=== PATIENT | female | born 1955 | race Caucasian/White ===

== ENCOUNTER → 2019-04-21 10:29 | Outpatient (CLI) | payer BC, SELFPAY ==
--- NOTE | 2019-04-21 | DI.MG.S_ITS ---
BILATERAL DIGITAL SCREENING MAMMOGRAM 3D/2D WITH CAD: 04/21/2019 CLINICAL: Routine screening. Family history of breast cancer. Comparison is made to exams dated: 10/12/2017 mammogram, 11/21/2016 mammogram, 06/03/2015 mammogram, and 08/15/2014 mammogram - [facility]. The tissue of both breasts is heterogeneously dense. This may lower the sensitivity of mammography. Current study was also evaluated with a Computer Aided Detection (CAD) system. There is a 1.3 cm round asymmetry with an indistinct and microlobulated margin in the left breast anterior depth central to the nipple seen on the mediolateral oblique view only. No other significant masses, calcifications, or other findings are seen in either breast. IMPRESSION: INCOMPLETE: NEEDS ADDITIONAL IMAGING EVALUATION The 1.3 cm round asymmetry in the left breast is indeterminate. Additional views with possible ultrasound are recommended. This exam was interpreted at Station ID: [id number]. NOTE: For mammograms, a report in lay terms will be sent to the patient. Approximately 15% of breast malignancies will not be visualized mammographically. In the management of a palpable breast mass, a negative mammogram must not discourage biopsy of a clinically suspicious lesion. Electronically Signed By: Brooke dang/:04/21/2019 17:26:52 letter sent: Additional Imaging Needed ACR BI-RADS Category 0: Incomplete 3340F
== END ==
PROVIDERS: PCP Family Medicine; Visit Provider Family Medicine
DX: Z12.31 Encounter for screening mammogram for malignant neoplasm of breast (principal); Z80.3 Family history of malignant neoplasm of breast; R92.8 Other abnormal and inconclusive findings on diagnostic imaging of breast
CPT/HCPCS: 77063; 77067

== ENCOUNTER → 2019-05-08 14:10 | Outpatient (CLI) | payer BC, SELFPAY ==
--- NOTE | 2019-05-08 | DI.MG.S_ITS ---
UNILATERAL LEFT DIGITAL DIAGNOSTIC MAMMOGRAM 3D/2D WITH ADDITIONAL VIEWS: 05/08/2019 CLINICAL: Additional evaluation requested from prior study. Comparison is made to exams dated: 04/21/2019 mammogram - [facility], 10/12/2017 mammogram, and 11/21/2016 mammogram - [facility]. The tissue of left breast is heterogeneously dense. This may lower the sensitivity of mammography. Previously noted 1.3 cm round asymmetry with an indistinct margin in the left breast anterior depth central to the nipple seen on the mediolateral oblique view only on comparison screening mammogram of 04/21/19 localizes to the superior left breast and has the appearance of benign anatomic tissues on additional views. IMPRESSION: INCOMPLETE: NEEDS ADDITIONAL IMAGING EVALUATION Previously noted 1.3 cm round asymmetry with an indistinct margin in the left breast anterior depth central to the nipple seen on the mediolateral oblique view only on comparison screening mammogram of 04/21/19 localizes to the superior left breast and has the appearance of benign anatomic tissues on additional views. A targeted ultrasound is recommended and will be performed immediately following this exam. This exam was interpreted at Station ID: [id number]. NOTE: For mammograms, a report in lay terms will be sent to the patient. Approximately 15% of breast malignancies will not be visualized mammographically. In the management of a palpable breast mass, a negative mammogram must not discourage biopsy of a clinically suspicious lesion. Electronically Signed By: Jesus Carney M.D. ecl/:05/08/2019 14:38:43 ACR BI-RADS Category 0: Incomplete 3340F
--- NOTE | 2019-05-08 | DI.US.S_ITS ---
LIMITED ULTRASOUND OF LEFT BREAST: 05/08/2019 CLINICAL: Patient returns today to evaluate an asymmetry in the left breast. Comparison is made to exams dated: 05/08/2019 mammogram, 04/21/2019 mammogram - [facility], and 10/12/2017 mammogram - [facility]. Color flow and real-time ultrasound of the left breast 10-2 o'clock region were performed. Lucas scale images of the real-time examination were reviewed. No underlying breast mass or abnormality is identified. There is no ultrasound correlate for the previously noted 1.3 cm round asymmetry with an indistinct margin in the left breast anterior depth central to the nipple seen on the mediolateral oblique view only on comparison screening mammogram of 04/21/19, which localizes to the superior left breast and had the appearance of benign anatomic tissues on additional views performed today 05/08/19. IMPRESSION: NEGATIVE There is no sonographic evidence of malignancy in the imaged areas of the left breast. Return to annual screening mammography schedule is recommended. The patient is advised to monitor her breasts and to return sooner for re-evaluation should she feel anything grow or change. This exam was interpreted at Station ID: [id number]. Electronically Signed By: Jesus Carney M.D. ecl/:05/08/2019 15:00:44 letter sent: Normal Exam Ultrasound BI-RADS: 1 Negative
== END ==
PROVIDERS: PCP Family Medicine; Visit Provider Family Medicine
DX: R92.8 Other abnormal and inconclusive findings on diagnostic imaging of breast (principal); N64.89 Other specified disorders of breast
CPT/HCPCS: 76642; 77065; G0279

== ENCOUNTER → 2020-06-16 10:54 | Outpatient (CLI) | payer BC, SELFPAY ==
--- NOTE | 2020-06-16 | DI.RAD.S_ITS ---
PROCEDURE: XR LUMBAR SPINE 2-3V INDICATIONS: Low back pain TECHNIQUE: 3 views of the lumbar spine were acquired. COMPARISON: None. FINDINGS: Bones: 5 ezp-wla-[id number] vertebrae are present. There is normal bony alignment. No vertebral body compression fractures. No suspicious bony lesions. The degenerative disc disease present is mild at L1-2, moderate at L2 through L3 4 and mild from L4 inferiorly. Facet osteoarthritis becomes progressively more prominent from L3 inferiorly. Spinal and foraminal stenosis may be present at L4-5 and L5-S1 based on these findings. Soft tissues: Overlying bowel gas pattern is normal. No suspicious soft tissue calcifications. IMPRESSION: Klyh-wj-ttnrrxgk degenerative disc disease, as discussed. No acute disease or appreciable subluxation is found. Spinal and foraminal stenosis would be suspected at L4-5 and L5-S1. Dictated by: Grzegorz Carlson M.D. on 06/16/2020 at 13:03 Approved by: Grzegorz Carlson M.D. on 06/16/2020 at 13:05
--- NOTE | 2020-06-16 11:09 | DI.MG.S_ITS ---
Patient Name: NAVDEEP CATHERINE date: 1955 Sex: F Attending Physician: Walter Indications: Date: 06/16/2020 11:04 At the request of: ROSALINO DUMONT Procedure: MM screening mammo BI BILATERAL DIGITAL SCREENING MAMMOGRAM 3D/2D WITH CAD: 06/16/2020 CLINICAL: Routine screening. Family history of breast cancer. Comparison is made to exams dated: 05/08/2019 mammogram, 04/21/2019 mammogram - [facility], and 10/12/2017 mammogram - [facility]. The tissue of both breasts is heterogeneously dense. This may lower the sensitivity of mammography. Current study was also evaluated with a Computer Aided Detection (CAD) system. No significant masses, calcifications, or other findings are seen in either breast. There has been no significant interval change. IMPRESSION: NEGATIVE There is no mammographic evidence of malignancy. A 1 year screening mammogram is recommended. This exam was interpreted at Station ID: [id number]. NOTE: For mammograms, a report in lay terms will be sent to the patient. Approximately 15% of breast malignancies will not be visualized mammographically. In the management of a palpable breast mass, a negative mammogram must not discourage biopsy of a clinically suspicious lesion. Electronically Signed By: Gerard Sandra M.D., jr/joycelyn:06/16/2020 16:39:53 letter sent: Normal Exam ACR BI-RADS Category 1: Negative 3341F
== END ==
PROVIDERS: PCP Family Medicine; Referring Provider Family Medicine; Visit Provider Family Medicine
DX: Z12.31 Encounter for screening mammogram for malignant neoplasm of breast (principal); Z80.3 Family history of malignant neoplasm of breast; M54.5 Low back pain; M51.36 Other intervertebral disc degeneration, lumbar region; M47.816 Spondylosis without myelopathy or radiculopathy, lumbar region
CPT/HCPCS: 72100; 77063; 77067

== ENCOUNTER → 2021-06-21 11:32 | Outpatient (CLI) | payer BC, SELFPAY ==
--- NOTE | 2021-06-21 11:38 | DI.MRI.S_ITS ---
PROCEDURE: MR KNEE RT WO CON INDICATIONS: right knee pain TECHNIQUE: Noncontrast sagittal PD fast spin echo and T2 fast spin echo with fat saturation, sagittal 3-D FLASH with fat saturation; coronal T1 spin echo and PD fast spin echo with fat saturation, and axial PD fast spin echo with fat saturation through the knee. COMPARISON: None. FINDINGS: Image quality: Excellent. Menisci: Complex oblique tear involving body/posterior horn junction of medial malleolus extending to inferior articulating surface. There is no evidence of focal lateral meniscal tear. The meniscal root ligaments appear intact. Cruciate ligaments: Anterior cruciate ligament appears thickened suggestive of low-grade sprain/degenerative changes. No full-thickness ACL rupture. PCL is intact. Medial structures: Low-grade MCL sprain near its femoral insertion is seen. The posterior oblique ligament, semimembranosus tendon insertions, oblique popliteal ligament, and meniscocapsular junction appear intact. Visualized portions of the pes anserinus tendons appear normal. No abnormal bursal fluid. Lateral structures: The lateral collateral ligament, long and short heads of the biceps femoris tendon appear intact. The popliteus tendon appears normal; the popliteofibular ligament appears intact. The posterosuperior and anteroinferior popliteomeniscal fascicles appear intact. The arcuate and fabellofibular ligaments appear intact, on either side of the lateral inferior geniculate artery. Iliotibial band appears normal. Anterior structures: The quadriceps and patellar tendons appear intact. Patellar alignment is normal. No femoral trochlear dysplasia or ventral trochlear prominence. No edema in the infrapatellar fat pad. Bones and cartilage: There is mild tricompartmental osteoarthritis and chondromalacia. Small area of edema in posterior weight-bearing portion of lateral femoral condyle is seen suggestive of small osteochondral injuries measures up to 5 millimeters in size. Focal moderate to high-grade chondromalacia involving medial facet of patella cartilage is seen. Joint space: There is small amount of joint fluid. No Barry's cyst. Normal appearing synovial plicae are incidentally noted. IMPRESSION: 1. Mild tricompartmental osteoarthritis and low-grade chondromalacia with suggestion of subcentimeter osteochondral lesions in posterior weight-bearing portion of lateral femoral condyle as above. Focal moderate to high-grade chondromalacia involving medial facet of patella cartilage. 2. Suggestion of complex tear involving body/posterior horn junction of medial meniscus extending to inferior articulating surface. No evidence of focal lateral meniscal tear. 3. Degenerative changes versus low-grade ACL sprain. No ACL rupture. PCL is intact. 4. Low-grade proximal MCL sprain. Dictated by: Andrew Edwards M.D. on 06/21/2021 at 14:08 Approved by: Andrew Edwards M.D. on 06/21/2021 at 14:20
--- NOTE | 2021-06-21 11:38 | DI.MRI.S_ITS ---
PROCEDURE: MR LUMBAR SPINE WO CON INDICATIONS: lumbar radiulopathy TECHNIQUE: Noncontrast sagittal T1 spin echo and T2 fast echo, sagittal STIR, axial T1 and T2 fast spin echo through the lumbar spine. In cases with scoliosis, additional coronal T2 fast spin echo may be performed. COMPARISON: None. FINDINGS: Image quality: Excellent. Alignment and Curvature: There is normal bony alignment. Bone Marrow: Degenerative endplate changes noted at L2-3 and L3-4. There is less than 10 percent wedge-shaped anterior height loss at L1 without marrow edema. Small Schmorl's nodes involving L1-2 and L3-4 endplates noted. Spinal Cord: Conus medullaris terminates at the L1 level. Visualized cord demonstrates normal signal and size. Paraspinous Soft Tissues: Incidental note is made of rounded filling defect in the lumen of the gallbladder consistent with cholelithiasis. Small 1 cm right renal simple cysts noted. T12-L1: Small paracentral left 1-2 mm disc protrusion noted without central or foraminal stenosis. L1-L2: Disc height is preserved. There is a small circumferential disc bulge present resulting in mild central and no foraminal stenosis. L2-L3: Moderate disc height loss with circumferential disc bulge results in mild central stenosis. Is moderate bilateral foraminal stenosis present as well. L3-L4: Moderate disc space narrowing with circumferential disc bulge anterior osteophyte noted. Mild hypertrophic facet joints present. There is moderate to severe central stenosis as well as severe bilateral foraminal stenosis, right greater than left. L4-L5: Mild disc height loss and circumferential disc bulge present with ligamentum flavum hypertrophy resulting in moderate central and moderate bilateral foraminal stenosis. L5-S1: Disc height is preserved. Mild circumferential disc bulge and hypertrophic facet joints present without central or foraminal stenosis. IMPRESSION: Multilevel degenerative disc disease and arthropathy resulting in varying degrees of central and foraminal stenosis including moderate to severe central and severe bilateral foraminal stenosis at L3-4 Incidental cholelithiasis and small right renal cyst Approved by: Bebeto Busby M.D. on 06/21/2021 at 14:27
== END ==
PROVIDERS: PCP Physician Assistant; Referring Provider Physician Assistant; Visit Provider Physician Assistant
DX: M54.16 Radiculopathy, lumbar region (principal); M25.561 Pain in right knee; M51.36 Other intervertebral disc degeneration, lumbar region; M48.061 Spinal stenosis, lumbar region without neurogenic claudication; M47.816 Spondylosis without myelopathy or radiculopathy, lumbar region; M17.11 Unilateral primary osteoarthritis, right knee; M94.261 Chondromalacia, right knee; S83.8X1A Sprain of other specified parts of right knee, initial encounter
CPT/HCPCS: 72148; 73721

== ENCOUNTER → 2021-06-29 09:25 | Outpatient (CLI) | payer BC, MEDICARE, SELFPAY ==
[2021-06-29 19:15] LABS: Add Manual Diff / Slide Review NO; Basophils Absolute Auto 0 /uL (0-100); Basophils Percent Auto 0.2 % (0-2); Eosinophils Absolute Auto 300 /uL (0-450); Eosinophils Percent Auto 5.7 % (2-4); Hematocrit 44.8 % (36-46); Hemoglobin 14.7 g/dL (12.0-16.0); Lymphocytes Absolute Auto 1600 /uL (1100-4500); Lymphocytes Percent Auto 27.3 % (25-40); Mean Corpuscular HGB Conc 32.7 % (30-36); Mean Corpuscular Hemoglobin 29.3 PG (26-34); Mean Corpuscular Volume 89.5 fL (80-100); Monocytes Absolute Auto 400 /uL (0-900); Monocytes Percent Auto 7.1 % (3-14); Neutrophils Absolute Auto 3400 /uL (1500-7000); Neutrophils Percent Auto 59.7 % (50-75); Platelet Count 193 X10^3/uL (150-400); Red Blood Cell Count 5.01 X10^6/uL (4.0-5.2); Red Cell Distribution Width 12.9 % (11.6-14.8); White Blood Cell Count 5.7 X10^3/uL (4.5-11.0)
[2021-06-29 19:22] LABS: Alanine Aminotransferase 16 IU/L (<35); Albumin 4.2 g/dL (3.5-5.0); Albumin Globulin Ratio 1.6 (1.0-2.8); Alkaline Phosphatase 85 U/L (38-126); Aspartate Aminotransferase 31 IU/L (14-36); BUN Creatinine Ratio 22.1 (6-22); Bilirubin Total 0.6 mg/dL (0.2-1.3); Blood Urea Nitrogen 15 mg/dL (7-17); Calcium 9.7 mg/dL (8.4-10.2); Carbon Dioxide 35 mmol/L (22-32); Chloride 101 mmol/L (98-107); Cholesterol 205 mg/dL (140-199); Estimated Glomerular Filt Rate > 60.0 mL/min (>60); Globulin 2.7 g/dL (1.7-4.1); Glucose 84 mg/dL (80-110); HDL Cholesterol 84 mg/dL (40-60); HEMOLYSIS < 15 (0-50); LDL Cholesterol Calculated 103 mg/dL (<100); Potassium 4.5 mmol/L (3.4-5.1); Sodium 139 mmol/L (137-145); Total Protein 6.9 g/dL (6.3-8.2); Triglycerides 92 mg/dL (35-150)
== END ==
PROVIDERS: PCP Physician Assistant; Visit Provider Physician Assistant
DX: Z79.899 Other long term (current) drug therapy (principal); R45.89 Other symptoms and signs involving emotional state
CPT/HCPCS: 80053; 80061; 84443; 85025

== ENCOUNTER → 2021-07-07 12:00 | Outpatient (CLI) | payer BC, MEDICARE, SELFPAY ==
--- NOTE | 2021-07-07 12:02 | DI.MG.S_ITS ---
BILATERAL DIGITAL SCREENING MAMMOGRAM 3D/2D WITH CAD: 07/07/2021 CLINICAL: Routine screening. Family history of breast cancer. Comparison is made to exams dated: 06/16/2020 mammogram, 05/08/2019 mammogram, and 04/21/2019 mammogram - [facility]. The tissue of both breasts is heterogeneously dense. This may lower the sensitivity of mammography. Current study was also evaluated with a Computer Aided Detection (CAD) system. There is a biopsy clip in the right breast. No significant masses, calcifications, or other findings are seen in either breast. There has been no significant interval change. IMPRESSION: NEGATIVE There is no mammographic evidence of malignancy. A 1 year screening mammogram is recommended. This exam was interpreted at Station ID: [id number]. NOTE: For mammograms, a report in lay terms will be sent to the patient. Approximately 15% of breast malignancies will not be visualized mammographically. In the management of a palpable breast mass, a negative mammogram must not discourage biopsy of a clinically suspicious lesion. Electronically Signed By: Ramu zamora/joycelyn:07/07/2021 14:46:01 letter sent: Normal Exam ACR BI-RADS Category 1: Negative 3341F
--- NOTE | 2021-07-07 12:02 | DI.RAD.S_ITS ---
PROCEDURE: XR DEXA AXIAL SKELETON INDICATIONS: screening osteoporosis COMPARISON: None. FINDINGS: This blank DEXA report has been sent in error by the PACS system. The correct and complete report will be forthcoming in 1-2 days. Thank you for your patience and understanding. Dictated by: Tyesha Ryder MD, PhD on 07/07/2021 at 17:16 Approved by: Tyesha Ryder MD, PhD on 07/07/2021 at 17:16
== END ==
PROVIDERS: PCP Physician Assistant; Referring Provider Physician Assistant; Visit Provider Physician Assistant
DX: Z13.820 Encounter for screening for osteoporosis (principal); Z79.899 Other long term (current) drug therapy; Z12.31 Encounter for screening mammogram for malignant neoplasm of breast; Z80.3 Family history of malignant neoplasm of breast; M85.88 Other specified disorders of bone density and structure, other site; M85.852 Other specified disorders of bone density and structure, left thigh; M85.851 Other specified disorders of bone density and structure, right thigh
CPT/HCPCS: 77063; 77067; 77080

== ENCOUNTER → 2022-07-27 11:13 | Outpatient (CLI) | payer BC, SELFPAY ==
--- NOTE | 2022-07-27 11:14 | DI.MG.S_ITS ---
BILATERAL DIGITAL SCREENING MAMMOGRAM 3D/2D WITH CAD: 07/27/2022 CLINICAL: Routine screening. Family history of breast cancer. Comparison is made to exams dated: 07/07/2021 mammogram, 06/16/2020 mammogram, and 04/21/2019 mammogram - [facility]. Both breasts are heterogeneously dense, which may obscure small masses (category c / 51-75% glandular tissue). Current study was also evaluated with a Computer Aided Detection (CAD) system. There is a biopsy clip in the right breast. No significant masses, calcifications, or other findings are seen in either breast. There has been no significant interval change. IMPRESSION: NEGATIVE There is no mammographic evidence of malignancy. A 1 year screening mammogram is recommended. This exam was interpreted at Station ID: [id number]. NOTE: For mammograms, a report in lay terms will be sent to the patient. Approximately 15% of breast malignancies will not be visualized mammographically. In the management of a palpable breast mass, a negative mammogram must not discourage biopsy of a clinically suspicious lesion. Electronically Signed By: Ramu zamora/joycelyn:07/27/2022 16:19:46 letter sent: Normal Exam ACR BI-RADS Category 1: Negative 3341F
== END ==
PROVIDERS: PCP Family Medicine; Referring Provider Family Medicine; Visit Provider Family Medicine
DX: Z12.31 Encounter for screening mammogram for malignant neoplasm of breast (principal); Z80.3 Family history of malignant neoplasm of breast
CPT/HCPCS: 77063; 77067

== ENCOUNTER → 2022-08-03 09:35 | Outpatient (CLI) | payer BC, SELFPAY ==
[2022-08-03 19:25] LABS: Add Manual Diff / Slide Review NO; Basophils Absolute Auto 0 /uL (0-100); Basophils Percent Auto 0.4 % (0-2); Eosinophils Absolute Auto 400 /uL (0-450); Hematocrit 42.2 % (36-46); Hemoglobin 14.3 g/dL (12.0-16.0); Lymphocytes Absolute Auto 1700 /uL (1100-4500); Lymphocytes Percent Auto 30.6 % (25-40); Mean Corpuscular HGB Conc 33.9 % (30-36); Mean Corpuscular Hemoglobin 29.6 PG (26-34); Mean Corpuscular Volume 87.5 fL (80-100); Monocytes Absolute Auto 500 /uL (0-900); Neutrophils Absolute Auto 3000 /uL (1500-7000); Platelet Count 194 X10^3/uL (150-400); Red Blood Cell Count 4.82 X10^6/uL (4.0-5.2); Red Cell Distribution Width 12.6 % (11.6-14.8); White Blood Cell Count 5.7 X10^3/uL (4.5-11.0)
[2022-08-03 19:29] LABS: BUN Creatinine Ratio 22.9 (6-22); Blood Urea Nitrogen 16 mg/dL (7-17); Calcium 9.1 mg/dL (8.4-10.2); Carbon Dioxide 32 mmol/L (22-32); Chloride 97 mmol/L (98-107); Cholesterol 206 mg/dL (140-199); Estimated Glomerular Filt Rate > 60 mL/min (>60); Glucose 88 mg/dL (80-110); HDL Cholesterol 80 mg/dL (40-60); HEMOLYSIS < 15 (0-50); LDL Cholesterol Calculated 114 mg/dL (<100); Potassium 4.1 mmol/L (3.4-5.1); Sodium 136 mmol/L (137-145); Triglycerides 62 mg/dL (35-150)
[2022-08-03 20:22] LABS: Hep C Virus Ab w/Reflex Quant NEGATIVE s/c (NEGATIVE)
== END ==
PROVIDERS: PCP Family Medicine; Visit Provider Family Medicine
DX: Z00.00 Encounter for general adult medical examination without abnormal findings (principal); F32.9 Major depressive disorder, single episode, unspecified; Z11.59 Encounter for screening for other viral diseases; Z12.11 Encounter for screening for malignant neoplasm of colon; Z12.31 Encounter for screening mammogram for malignant neoplasm of breast; Z13.1 Encounter for screening for diabetes mellitus; Z13.6 Encounter for screening for cardiovascular disorders; Z13.820 Encounter for screening for osteoporosis; Z71.85 Encounter for immunization safety counseling
CPT/HCPCS: 80048; 80061; 85025; 86803

== ENCOUNTER → 2023-03-07 10:40 | Outpatient (CLI) | payer BC, SELFPAY ==
--- NOTE | 2023-03-07 | DI.MRI.S_ITS ---
PROCEDURE: MR KNEE LT WO CON INDICATIONS: Other tear of medial meniscus left knee TECHNIQUE: Noncontrast sagittal PD fast spin echo and T2 fast spin echo with fat saturation, sagittal 3-D FLASH with fat saturation; coronal T1 spin echo and PD fast spin echo with fat saturation, and axial PD fast spin echo with fat saturation through the knee. COMPARISON: None. FINDINGS: Image quality: Excellent. Menisci: Radial tearing of the posterior horn medial meniscus at the meniscal root ligament insertion site. Linear oblique and amorphous high T2 signal intensity traverses the inner, middle, and peripheral thirds of the anterior horn, body, and posterior horn medial meniscus, demonstrating inferior articular surface extension, indicating complex tearing. Lateral meniscus is intact. Cruciate ligaments: The anterior and posterior cruciate ligaments appear intact. Medial structures: The medial collateral ligament appears intact. Visualized portions of the pes anserinus tendons appear normal. Mild T2 signal elevation adjacent to the tibial insertion site of the semimembranosus. No abnormal bursal fluid. Lateral structures: The lateral collateral ligament, long and short heads of the biceps femoris tendon appear intact. The popliteus tendon appears normal. Iliotibial band appears normal. Anterior structures: The quadriceps and patellar tendons appear intact. Patellar alignment is normal. No femoral trochlear dysplasia or ventral trochlear prominence. No edema in the infrapatellar fat pad. Bones and cartilage: No bone marrow contusions or fractures. There is mild tricompartmental periarticular osteophyte formation. Severe articular cartilage loss diffusely overlies the weight-bearing aspects of the medial femoral condyle and medial tibial plateau. Mild articular cartilage loss overlies the weight-bearing aspects of the lateral femoral condyle and lateral tibial plateau. Mild articular cartilage loss overlies the medial and lateral patellar facets. Joint space: There is a small knee joint effusion and a small cyst. Normal appearing synovial plicae are incidentally noted. IMPRESSION: 1. Complex tearing of the medial meniscus. 2. Tricompartmental osteoarthritis with associated articular cartilage loss. 3. Insertional tendinitis of the semimembranosus. 4. Knee joint effusion and Barry's cyst. Dictated by: Sis Lara M.D. on 03/07/2023 at 11:30 Approved by: Sis Lara M.D. on 03/07/2023 at 11:34
== END ==
PROVIDERS: PCP Family Medicine; Referring Provider Orthopaedic Surgery; Visit Provider Orthopaedic Surgery
DX: S83.232A Complex tear of medial meniscus, current injury, left knee, initial encounter (principal); M17.12 Unilateral primary osteoarthritis, left knee; M76.822 Posterior tibial tendinitis, left leg; M25.462 Effusion, left knee; M71.22 Synovial cyst of popliteal space [Baker], left knee; X58.XXXA Exposure to other specified factors, initial encounter
CPT/HCPCS: 73721

== ENCOUNTER → 2023-08-14 10:43 | Outpatient (CLI) | payer BC, SELFPAY ==
--- NOTE | 2023-08-14 | DI.MG.S_ITS ---
BILATERAL DIGITAL SCREENING MAMMOGRAM 3D/2D WITH CAD: 08/14/2023 CLINICAL: Routine screening. Family history of breast cancer. Comparison is made to exams dated: 07/27/2022 mammogram, 07/07/2021 mammogram, and 06/16/2020 mammogram - [facility]. Both breasts are heterogeneously dense, which may obscure small masses (category c / 51-75% glandular tissue). Current study was also evaluated with a Computer Aided Detection (CAD) system. There is a biopsy clip in the right breast. No significant masses, calcifications, or other findings are seen in either breast. There has been no significant interval change. IMPRESSION: NEGATIVE There is no mammographic evidence of malignancy. A 1 year screening mammogram is recommended. Based on the Tyrer Cuzick model (a risk assessment model) the patient's lifetime risk is 17.6% and her 10 year risk is 10.1%. According to the ACR, ACS, and NCCN guidelines, an annual breast MRI exam along with mammogram is recommended if the patient's lifetime risk is 20% or greater. This exam was interpreted at Station ID: [id number]. NOTE: For mammograms, a report in lay terms will be sent to the patient. Approximately 15% of breast malignancies will not be visualized mammographically. In the management of a palpable breast mass, a negative mammogram must not discourage biopsy of a clinically suspicious lesion. Electronically Signed By: Kevin bustamante/joycelyn:08/14/2023 13:07:57 letter sent: Normal Exam ACR BI-RADS Category 1: Negative 3341F
== END ==
PROVIDERS: PCP Family Medicine; Referring Provider Family Medicine; Visit Provider Family Medicine
DX: Z12.31 Encounter for screening mammogram for malignant neoplasm of breast (principal); Z80.3 Family history of malignant neoplasm of breast
CPT/HCPCS: 77063; 77067

== ENCOUNTER → 2023-09-06 08:50 | Outpatient (CLI) | payer BC, SELFPAY ==
[2023-09-06 18:59] LABS: Add Manual Diff / Slide Review NO; Basophils Absolute Auto 0 /uL (0-100); Basophils Percent Auto 0.2 % (0-2); Eosinophils Absolute Auto 200 /uL (0-450); Hematocrit 43.9 % (36-46); Hemoglobin 14.7 g/dL (12.0-16.0); Lymphocytes Absolute Auto 1800 /uL (1100-4500); Lymphocytes Percent Auto 31.8 % (25-40); Mean Corpuscular HGB Conc 33.4 % (30-36); Mean Corpuscular Hemoglobin 29.3 PG (26-34); Mean Corpuscular Volume 87.9 fL (80-100); Monocytes Absolute Auto 500 /uL (0-900); Monocytes Percent Auto 8.6 % (3-14); Neutrophils Absolute Auto 3100 /uL (1500-7000); Neutrophils Percent Auto 55.4 % (50-75); Platelet Count 219 X10^3/uL (150-400); Red Cell Distribution Width 12.8 % (11.6-14.8); White Blood Cell Count 5.7 X10^3/uL (4.5-11.0)
[2023-09-06 19:17] LABS: Alanine Aminotransferase 16 IU/L (<35); Albumin Globulin Ratio 1.5 (1.0-2.8); Alkaline Phosphatase 87 U/L (38-126); Aspartate Aminotransferase 29 IU/L (14-36); BUN Creatinine Ratio 22.7 (6-22); Bilirubin Total 0.9 mg/dL (0.2-1.3); Blood Urea Nitrogen 17 mg/dL (7-17); Calcium 9.6 mg/dL (8.4-10.2); Carbon Dioxide 32 mmol/L (22-32); Chloride 96 mmol/L (98-107); Cholesterol 201 mg/dL (140-199); Estimated Glomerular Filt Rate > 60 mL/min (>60); Globulin 2.6 g/dL (1.7-4.1); Glucose 86 mg/dL (80-110); HDL Cholesterol 84 mg/dL (40-60); HEMOLYSIS < 15 (0-50); LDL Cholesterol Calculated 103 mg/dL (<100); Potassium 4.3 mmol/L (3.4-5.1); Sodium 135 mmol/L (137-145); Total Protein 6.6 g/dL (6.3-8.2); Triglycerides 69 mg/dL (35-150)
[2023-09-06 19:39] LABS: TSH w/ Reflex to FT4 3.35 uIU/mL (0.47-4.68)
[2023-09-06 19:57] LABS: Hep C Virus Ab w/Reflex Quant NEGATIVE s/c (NEGATIVE)
== END ==
PROVIDERS: PCP Family Medicine; Visit Provider Family Medicine
DX: Z13.1 Encounter for screening for diabetes mellitus (principal); F32.9 Major depressive disorder, single episode, unspecified; M17.0 Bilateral primary osteoarthritis of knee; M85.80 Other specified disorders of bone density and structure, unspecified site; J45.30 Mild persistent asthma, uncomplicated; Z13.6 Encounter for screening for cardiovascular disorders
CPT/HCPCS: 80053; 80061; 84443; 85025; 86803

== ENCOUNTER → 2023-10-12 10:25 | Outpatient (CLI) | payer BC, SELFPAY ==
--- NOTE | 2023-10-12 10:30 | DI.RAD.S_ITS ---
Bone Density Report Name: NAVDEEP CATHERINE Age: 68 Sex: Female Ethnicity: White Date of : 1955 Indication: osteopenia; Referring Provider: OSEAS DEE Study: Bone densitometry was performed. Exam Date: October 12, 2023 Accession number: [id number] Bone Density: Region BMD T-score Z-score Classification AP Spine(L2, L3, L4) 0.995 -0.8 1.3 Normal Femoral Neck (Left) 0.596 -2.3 -0.5 Osteopenia Total Hip (Left) 0.695 -2.0 -0.6 Osteopenia Femoral Neck (Right) 0.602 -2.2 -0.5 Osteopenia Total Hip (Right) 0.678 -2.2 -0.7 Osteopenia Total Hip Mean 0.687 -2.1 -0.7 Osteopenia World Health Organization criteria for BMD impression classify patients as: Normal (T-score at or above -1.0), Osteopenia (T-score between -1.0 and -2.5), or Osteoporosis (T-score at or below -2.5). 10-year Fracture Risk(1): Major Osteoporotic Fracture 11% Hip Fracture 2.5% Reported Risk Factors: [place] (), Neck BMD=0.596, BMI=20.3 (1) FRAX(R) Version 3.08. Fracture probability calculated for an untreated patient. Fracture probability may be lower if the patient has received treatment. Previous Exams: -- Region Exam Age BMD T-score BMD Change BMD Change Date g/cm2 vs Baseline vs Previous -- AP Spine (L2-L4) 10/12/2023 68 0.995 -0.8 0.014 (1.5%)# 0.014 (1.5%)# 07/07/2021 65 0.980 -0.9 Total Hip(Left) 10/12/2023 68 0.695 -2.0 -0.054 (-7.2%)# -0.054 (-7.2%)# 07/07/2021 65 0.749 -1.6 Total Hip(Right) 10/12/2023 68 0.678 -2.2 -0.008 (-1.2%)# -0.008 (-1.2%)# 07/07/2021 65 0.687 -2.1 -- *Denotes significance at 95% confidence level, LSC for AP Spine = 0.022 g/cm2, LSC for Total Hip = 0.027 g/cm2 # Denotes dissimilar scan types or analysis methods Impression: The patient has low bone mass, based on the Left Femoral Neck T-score. The patient has an estimated ten-year risk of hip fracture of 2.5% and an estimated ten-year risk of major fracture of 11%, based on the WHO FRAX algorithm. No significant bone loss was observed. Discussion: BONE DENSITY IS LOW AT ONE OR MORE SKELETAL SITES. This patient's lowest T-score is low at one or more skeletal sites. It meets the World Health Organization's (WHO) criteria for low bone mass (T-score between -1.0 and -2.5). The patient's 10-year risk of fracture as calculated by FRAX is less than the threshold where pharmacological therapy is recommended by the National Osteoporosis Foundation (NOF). However, all treatment decisions require clinical judgment and consideration of individual patient factors, including patient preferences, comorbidities, previous drug use, risk factors not captured in the FRAX model (e.g., frailty, falls, vitamin D deficiency, increased bone turnover, interval significant decline in bone density) and possible under or overestimation of fracture risk by FRAX. The patient should follow a healthful lifestyle (good nutrition with adequate calcium and vitamin D, and appropriate weight-bearing exercise). Follow-Up: Consider repeating this study in 2 to 3 years to reassess this patient's status, or sooner if there is some new clinical indication. Reported by: RAKAN MCKEON M.D. on 10/12/2023 11:03:00 AM.
== END ==
LOC: RAD 10:26
PROVIDERS: PCP Family Medicine; Referring Provider Family Medicine; Visit Provider Family Medicine
DX: M85.89 Other specified disorders of bone density and structure, multiple sites (principal); Z78.0 Asymptomatic menopausal state
CPT/HCPCS: 77080

== ENCOUNTER → 2024-07-23 13:51 | Outpatient (CLI) | payer BC, SELFPAY ==
--- NOTE | 2024-07-23 13:52 | DI.MG.S_ITS ---
BILATERAL DIGITAL SCREENING MAMMOGRAM 3D/2D WITH CAD: 07/23/2024 CLINICAL: Routine screening. Family history of breast cancer. Comparison is made to exams dated: 08/14/2023 mammogram, 07/27/2022 mammogram, 07/07/2021 mammogram, and 06/16/2020 mammogram - [facility]. The breasts are heterogeneously dense, which may obscure small masses (category c / 51-75% glandular tissue). Current study was also evaluated with a Computer Aided Detection (CAD) system. There is a biopsy clip in the right breast. No significant masses, calcifications, or other findings are seen in either breast. There has been no significant interval change. IMPRESSION: BENIGN There is no mammographic evidence of malignancy. A 1 year screening mammogram is recommended. Based on the Tyrer Cuzick model (a risk assessment model) the patient's lifetime risk is 16.8% and her 10 year risk is 10.1%. According to the ACR, ACS, and NCCN guidelines, an annual breast MRI exam along with mammogram is recommended if the patient's lifetime risk is 20% or greater. This exam was interpreted at Station ID: [id number]. NOTE: For mammograms, a report in lay terms will be sent to the patient. Approximately 15% of breast malignancies will not be visualized mammographically. In the management of a palpable breast mass, a negative mammogram must not discourage biopsy of a clinically suspicious lesion. Electronically Signed By: Sera Chavarria M.D., Ph.D. pamela/joycelyn:07/24/2024 17:14:00 letter sent: Normal Exam ACR BI-RADS Category 2: Benign
== END ==
PROVIDERS: PCP Family Medicine; Referring Provider Family Medicine; Visit Provider Family Medicine
DX: Z12.31 Encounter for screening mammogram for malignant neoplasm of breast (principal); Z80.3 Family history of malignant neoplasm of breast; R92.333 Mammographic heterogeneous density, bilateral breasts
CPT/HCPCS: 77063; 77067

== ENCOUNTER → 2024-09-04 09:26 | Outpatient (CLI) | payer BC, SELFPAY ==
[2024-09-04 20:17] LABS: Alanine Aminotransferase 18 IU/L (<35); Albumin 3.9 g/dL (3.5-5.0); Albumin Globulin Ratio 1.5 (1.0-2.8); Alkaline Phosphatase 85 U/L (38-126); Aspartate Aminotransferase 29 IU/L (14-36); BUN Creatinine Ratio 23.2 (6-22); Bilirubin Total 0.7 mg/dL (0.2-1.3); Blood Urea Nitrogen 16 mg/dL (7-17); Calcium 9.5 mg/dL (8.4-10.2); Carbon Dioxide 31 mmol/L (22-32); Chloride 101 mmol/L (98-107); Cholesterol 225 mg/dL (140-199); Estimated Glomerular Filt Rate > 60 mL/min (>60); Globulin 2.6 g/dL (1.7-4.1); Glucose 88 mg/dL (80-110); HDL Cholesterol 95 mg/dL (40-60); HEMOLYSIS < 15 (0-50); LDL Cholesterol Calculated 115 mg/dL (<100); Potassium 4.5 mmol/L (3.4-5.1); Sodium 134 mmol/L (137-145); Total Protein 6.5 g/dL (6.3-8.2); Triglycerides 74 mg/dL (35-150)
[2024-09-04 20:42] LABS: TSH w/ Reflex to FT4 2.61 uIU/mL (0.47-4.68)
== END ==
PROVIDERS: PCP Family Medicine; Visit Provider Family Medicine
DX: J30.9 Allergic rhinitis, unspecified (principal); J45.30 Mild persistent asthma, uncomplicated; F32.9 Major depressive disorder, single episode, unspecified; M85.80 Other specified disorders of bone density and structure, unspecified site; Z13.1 Encounter for screening for diabetes mellitus; Z13.6 Encounter for screening for cardiovascular disorders
CPT/HCPCS: 80053; 80061; 84443

== ENCOUNTER → 2024-11-04 15:10 | Outpatient (CLI) | payer BC, SELFPAY | PROVIDERS: PCP Family Medicine; Visit Provider Physician Assistant Medical | DX: N76.0 Acute vaginitis (principal); R31.9 Hematuria, unspecified; B96.89 Other specified bacterial agents as the cause of diseases classified elsewhere; Z12.4 Encounter for screening for malignant neoplasm of cervix; Z11.51 Encounter for screening for human papillomavirus (HPV); N95.2 Postmenopausal atrophic vaginitis; B37.9 Candidiasis, unspecified | CPT/HCPCS: 87077; 87086; 87186 ==

== ENCOUNTER → 2025-08-04 10:54 | Outpatient (CLI) | payer BC, SELFPAY ==
--- NOTE | 2025-08-04 10:55 | DI.MG.S_ITS ---
MM screening mammo BI: 08/04/2025. BI-RADS: 2 CLINICAL: 69-year old female for bilateral screening mammogram. Tyrer-Cuzick lifetime risk of 11.5%. Current reported family history of breast cancer: sister. The patient had a prior right breast biopsy. PRIOR EXAMS 07/23/2024, 08/14/2023, 07/27/2022, 07/07/2021. MAMMOGRAPHY TECHNIQUE: 2D and 3D (tomosynthesis) digital mammographic views obtained, with additional images as needed for full coverage. Current study was also evaluated with a Computer Aided Detection (CAD) system. DENSITY C. The breasts are heterogeneously dense, which may obscure small masses. MAMMOGRAPHY FINDINGS Right: Biopsy marker present on the right. There are no suspicious masses, calcifications, or other findings in the breast. Left: No suspicious mass, asymmetry, microcalcification, or other abnormality seen. IMPRESSION: Right * No evidence of malignancy with benign findings. Left * No evidence of malignancy. RECOMMENDATIONS Bilateral * Annual screening mammography. OVERALL ASSESSMENT CATEGORY BI-RADS-2: Benign. [employer] recommends annual screening mammography beginning at age 40 for women with average risk of breast cancer. ELECTRONICALLY SIGNED: Makenna Hameed M.D. on 08/04/2025 at 04:28:54 PM PT Interpreting Station ID: [id number]
== END ==
LOC: MAMMO 10:54
PROVIDERS: PCP Family Medicine; Referring Provider Family Medicine; Visit Provider Family Medicine
DX: Z12.31 Encounter for screening mammogram for malignant neoplasm of breast (principal); R92.333 Mammographic heterogeneous density, bilateral breasts; Z80.3 Family history of malignant neoplasm of breast
CPT/HCPCS: 77063; 77067

== ENCOUNTER → 2025-08-05 09:18 | Outpatient (CLI) | payer BC, SELFPAY ==
[2025-08-05 19:11] LABS: Add Manual Diff / Slide Review NO; Hematocrit 42.8 % (36-46); Hemoglobin 14.4 g/dL (12.0-16.0); Lymphocytes Absolute Auto 2000 /uL (1100-4500); Mean Corpuscular HGB Conc 33.6 % (30-36); Mean Corpuscular Hemoglobin 29.5 PG (26-34); Mean Corpuscular Volume 87.9 fL (80-100); Platelet Count 220 X10^3/uL (150-400)
[2025-08-05 19:34] LABS: Blood Urea Nitrogen 16 mg/dL (7-17); Calcium 9.5 mg/dL (8.4-10.2); Carbon Dioxide 29 mmol/L (22-32); Chloride 99 mmol/L (98-107); Cholesterol 226 mg/dL (140-199); Estimated Glomerular Filt Rate > 60 mL/min (>60); Glucose 87 mg/dL (70-99); HDL Cholesterol 106 mg/dL (40-60); HEMOLYSIS < 15 (0-50); Potassium 4.1 mmol/L (3.4-5.1); Sodium 136 mmol/L (137-145); Triglycerides 85 mg/dL (35-150)
== END ==
PROVIDERS: PCP Family Medicine; Visit Provider Family Medicine
DX: J45.31 Mild persistent asthma with (acute) exacerbation (principal); M54.9 Dorsalgia, unspecified; G89.29 Other chronic pain; R31.0 Gross hematuria; Z13.1 Encounter for screening for diabetes mellitus; M85.89 Other specified disorders of bone density and structure, multiple sites; Z13.6 Encounter for screening for cardiovascular disorders
CPT/HCPCS: 80048; 80061; 85025